=== PATIENT | male | born 1960 | race Caucasian/White ===

== ENCOUNTER → 2016-07-31 | Outpatient (CLI) | payer OTHER | LOC: OD 10:23 | PROVIDERS: ATTEND Urology | DX: C61 Malignant neoplasm of prostate (principal) | CPT/HCPCS: 36415; 84153 ==

== ENCOUNTER → 2016-11-06 | Outpatient (CLI) | payer OTHER ==
[2016-11-07 11:58] LABS: PROSTATE SPECIFIC ANTIGEN <0.1 ng/mL (0.0-4.0); PSA FREE <0.01 ng/mL
== END ==
LOC: OD 10:11
PROVIDERS: ATTEND Urology
DX: C61 Malignant neoplasm of prostate (principal)
CPT/HCPCS: 36415; 84154

== ENCOUNTER 2016-12-06 00:02 | Inpatient (IN) | payer OTHER ==
[2016-12-06] MEDS ORDERED: MORPHINE SULFATE 10 MG/ML INJ IV ONE ×2 (02:28→07:51)
[2016-12-06] MEDS ORDERED: ONDANSETRON HCL INJ/PF 4 MG/2 ML SDV IV ONE (02:28)
--- NOTE | 2016-12-06 02:29 | ER Document Report ---
ED General <RDZ,BRIAN - Last Filed: 12/06/16 05:33> - General TRAVEL OUTSIDE OF THE [place] IN LAST 30 DAYS: No <ZAIDA MARQUEZ - Last Filed: 12/06/16 07:43> - General Chief Complaint: Breathing Difficulty Stated Complaint: FALL/DIFFICULTY BREATHING Time Seen by Provider: 12/06/16 02:21 Notes: 56-year-old male who comes emergency department for chief complaint of fall injury, he states that he does and accidentally landed on his right side with his right arm outstretched, he landed on his ribs and side on the right, he states he has pain with every breath. This happened this evening. Patient takes baby aspirin daily, no other blood thinners. He denies hitting his head, he denies loss of consciousness, he denies focal numbness or weakness, he denies loss of bowel or bladder control. He is a former smoker. (ZAIDA MARQUEZ) - Related Data Allergies/Adverse Reactions: Sulfa (Sulfonamide Antibiotics) Allergy (Severe, Verified 06/11/15 09:02) RASH Past Medical History - General Information source: Patient - Social History Smoking Status: Former Smoker Frequency of alcohol use: Occasional Drug Abuse: None Lives with: Family Family History: Reviewed & Not Pertinent - Past Medical History Cardiac Medical History: Reports: Hx Hypercholesterolemia - on meds, Hx Hypertension - on meds, Hx Heart Murmur Denies: Hx Atrial Fibrillation, Hx Congestive Heart Failure, Hx Coronary Artery Disease, Hx Heart Attack, Hx Peripheral Vascular Disease, Hx Pulmonary Embolism Pulmonary Medical History: Reports: Hx Bronchitis - hx of, Hx Pneumonia - hx of , Hx Sleep Apnea - SINCE 2003 -cpap Denies: Hx Asthma - hx wheezing-inhaler, Hx COPD, Hx Respiratory Failure, Hx Tuberculosis Endocrine Medical History: Denies: Hx Graves' Disease, Hx Hyperthyroidism, Hx Hypothyroidism Renal/ Medical History: Reports: Hx Benign Prostatic Hyperplasia - prostate ca. Denies: Hx End Stage Renal Disease, Hx Kidney Stones, Hx Peritoneal Dialysis Malignancy Medical History: Denies Hx Lung Cancer GI Medical History: Reports: Hx Gastroesophageal Reflux Disease - on meds. Denies: Hx Crohn's Disease, Hx Hiatal Hernia, Hx Irritable Bowel, Hx Liver Failure, Hx Ulcer Musculoskeltal Medical History: Reports Hx Arthritis, Denies Hx Fibromyalgia, Denies Hx Muscular Dystrophy Psychiatric Medical History: Reports: Hx Depression, Hx Post Traumatic Stress Disorder Denies: Hx Bipolar Disorder, Hx Schizophrenia Traumatic Medical History: Reports: Hx Fractures - nose, clavicle, left arm Past Surgical History: Reports: Hx Genitourinary Surgery - prostate. Denies: Hx Appendectomy, Hx Bowel Surgery, Hx Cholecystectomy, Hx Colostomy, Hx Coronary Artery Bypass Graft, Hx Gastric Bypass Surgery, Hx Herniorrhaphy, Hx Pacemaker, Hx Tonsillectomy - Immunizations Hx Diphtheria, Pertussis, Tetanus Vaccination: Yes <ZAIDA MARQUEZ - Last Filed: 12/06/16 07:43> Review of Systems - Review of Systems Constitutional: No symptoms reported EENT: No symptoms reported Cardiovascular: See HPI Respiratory: See HPI Gastrointestinal: See HPI Genitourinary: No symptoms reported Male Genitourinary: No symptoms reported Musculoskeletal: See HPI Skin: No symptoms reported Hematologic/Lymphatic: No symptoms reported Neurological/Psychological: No symptoms reported <ZAIDA MARQUEZ - Randell Filed: 12/06/16 07:43> Physical Exam - Vital signs Interpretation: Normal - General General appearance: Alert, Anxious In distress: Mild - patient appears to be in some pain, shifts frequently - HEENT Head: Normocephalic, Atraumatic Eyes: Normal Conjunctiva: Normal Extraocular movements intact: Yes Eyelashes: Normal Pupils: PERRL Nasal: Normal Mouth/Lips: Normal Mucous membranes: Normal Pharynx: Normal Neck: Normal - Respiratory Respiratory status: No respiratory distress Chest status: Tender - very tender over right mid ribs generally, no contusion or deformity noted, no other abnormalities noted Breath sounds: Decreased air movement - patient will not perform full breaths, decreased and difficult to compare Chest palpation: Normal - Cardiovascular Rhythm: Regular Heart sounds: Normal auscultation Murmur: No - Abdominal Inspection: Normal Distension: No distension Bowel sounds: Normal Tenderness: Tender - Tender generally in the upper abdomen, worse on the right side, no trauma noted, no ecchymosis, no other abnormality noted Organomegaly: No organomegaly - Back Back: Normal, Nontender. No: Tender - Normal upper and lower extremity range of motion, strength, distal neurovascular exam, no midline tenderness, no saddle anesthesia - Extremities General upper extremity: Normal inspection, Nontender, Normal color, Normal ROM , Normal temperature General lower extremity: Normal inspection, Nontender, Normal color, Normal ROM , Normal temperature, Normal weight bearing. No: Akua's sign - Neurological Neuro grossly intact: Yes Cognition: Normal Orientation: AAOx4 [place] Coma Scale Eye Opening: Spontaneous Randall Coma Scale Verbal: Oriented [place] Coma Scale Motor: Obeys Commands Randall Coma Scale Total: 15 Speech: Normal Motor strength normal: LUE, RUE, LLE, RLE Sensory: Normal - Psychological Associated symptoms: Normal affect, Normal mood - Skin Skin Temperature: Warm Skin Moisture: Dry Skin Color: Normal <ZAIDA MARQUEZ - Last Filed: 12/06/16 07:43> - Vital signs Vitals: Temp Pulse Resp BP Pulse Ox 97.3 F 72 20 122/85 97 12/06/16 00:10 12/06/16 00:10 12/06/16 00:10 12/06/16 00:10 12/06/16 00:10 Course - Laboratory Result Diagrams: 12/06/16 03:06 12/06/16 03:06 <AMY RDZ - Last Filed: 12/06/16 05:33> - Laboratory Result Diagrams: 12/06/16 03:06 12/06/16 03:06 <ZAIDA MARQUEZ - Last Filed: 12/06/16 07:43> - Re-evaluation Re-evalutation: 12/06/16 05:34 Patient is being worked up by the physician's academic assistant, I will feel. He performed a CT scan appropriately because the patient's chest pain after fall. CT scan shows a rib fracture as well as a moderate-sized pneumothorax. I discussed with the patient about placing a pigtail catheter. He has no blood or fluid in the lung space on CT scan therefore think pigtail catheter probably is appropriate. Patient was agreeable to this. Patient is on no blood thinning medications and has no current contraindication to a pigtail catheter. Pigtail catheter was placed in the third rib space. This with up to suction. Patient's initial O2 saturations were 90% on a nonrebreather. His O2 saturations are 100% on 5 L nasal cannula. Chest x-ray shows reinflation of the lung. There is a kink in the catheter; however, the patient does have full reinflation of the lung on x-ray. (AMY RDZ) Patient is in obvious discomfort, I do not see any traumatic findings over his chest although he has notable tenderness over the side of the chest on the right and also mildly in the upper abdomen. Patient is not tachypneic, hypoxic , or hypotensive. Because of stable vital signs will proceed to CAT scan imaging for full evaluation of trauma. Provided pain medication. On reassessment patient is improved but still in pain, still has difficulty performing a lung exam because of discomfort (reluctance to perform full breath) , laboratory workup unremarkable, CAT scan pending. Will provide with additional pain medication. Patient became mildly hypoxic after pain medication at about 90%. CT showing acute traumatic right sided pneumothorax with no evidence of bleeding , also 7th rib fracture (non-displaced). No other acute abnormality. Patient moved to trauma room, placed on oxygen, brought Dr. Rdz to bedside. Dr. Rdz performed chest tube/pigtail catheter with good results. 12/06/16 06:[address] Choudhury, surgery material handler floorperson, he will evaluate the patient. 12/06/16 07:[address] Choudhury to patient at bedside; patient will be admitted to the hospital (ZAIDA MARQUEZ) - Vital Signs Vital signs: Temp Pulse Resp BP Pulse Ox 98.1 F 70 15 109/82 99 12/06/16 03:53 12/06/16 03:53 12/06/16 07:01 12/06/16 07:01 12/06/16 07:01 - Laboratory Laboratory results interpreted by me: 12/06/16 12/06/16 03:06 03:06 WBC 11.2 H RBC 4.24 L Hgb 13.3 L Chloride 108 H BUN 27 H - EKG Interpretation by Me Additional EKG results interpreted by me: 12/06/16 05:33 EKG is reviewed and interpreted by me. EKG shows normal sinus rhythm with a rate of 64 bpm. Patient has slight concave up ST segment elevation in leads I and aVL with no reciprocal ST segment depressions. This is not consistent with ischemia. No ischemic T-wave inversions. [place] interval slightly prolonged. QRS duration and QT intervals are within normal range. Old EKG for comparison is from August 01, 2015. (AMY RDZ) Procedures - Chest Tube Right Consent obtained: Yes Chest tube pre-insertion: Chloraprep applied, Sterile drapes applied Anesthetic type: 1% Lidocaine w/epi mL's of anesthetic: 3 Chest tube post-insertion: Sutured, Position confirmed w/ CXR, Water seal, Low intermittent suction Number of attempts: 1 Complications: No <AMY RDZ - Last Filed: 12/06/16 05:33> <ZAIDA MARQUEZ - Last Filed: 12/06/16 07:43> - Chest Tube Right Notes: 12/06/16 05:36 Pig tail catheter was placed in mid clavicular line over third rib interspace ( AMY RDZ) Critical Care Note <AMY RDZ - Last Filed: 12/06/16 05:33> - Critical Care Note Total time excluding time spent on procedures (mins): 35 - traumatic chest injury, pneumothorax <ZAIDA MARQUEZ - Last Filed: 12/06/16 07:43> - Critical Care Note Comments: Evaluation and treatment of patient with fall, acute injury to the chest, acute traumatic pneumothorax, rib fracture. Multiple re-evaluations, consultation with surgery, admission to the hospital. (AZIDA MARQUEZ) Discharge <AMY RDZ - Last Filed: 12/06/16 05:33> - Discharge Admitting Provider: Surgicalist Unit Admitted: Surgical Floor <ZAIDA MARQUEZ - Last Filed: 12/06/16 07:43> - Discharge Clinical Impression: Fall Qualifiers: Encounter type: initial encounter Qualified Code(s): W19.XXXA - Unspecified fall, initial encounter Rib fracture Qualifiers: Encounter type: initial encounter Rib fracture type: single rib Fracture type: closed Laterality: right Qualified Code(s): S22.31XA - Fracture of one rib, right side, initial encounter for closed fracture Pneumothorax Qualifiers: Pneumothorax type: traumatic Encounter type: initial encounter Qualified Code(s ): S27.0XXA - Traumatic pneumothorax, initial encounter Referrals: KELVIN MCCOY MD [Primary Care Provider] - Follow up as needed
[2016-12-06 03:18] LABS: ABSOLUTE BASOPHILS # (AUTO) 0.1 10^3/uL (0.0-0.2); ABSOLUTE EOSINOPHILS # (AUTO) 0.2 10^3/uL (0.0-0.6); ABSOLUTE LYMPHOCYTES (AUTO) 2.8 10^3/uL (0.5-4.7); ABSOLUTE MONOCYTES (AUTO) 0.8 10^3/uL (0.1-1.4); ABSOLUTE NEUT (AUTO) 7.3 10^3/uL (1.7-8.2); BASOPHILS % (AUTO) 0.8 % (0-2); EOSINOPHILS % (AUTO) 1.7 % (0-6); HEMATOCRIT 39.4 % (37.9-51.0); HEMOGLOBIN 13.3 g/dL (13.5-17.0); HGB HCT DIFFERENCE 0.5; LYMPHOCYTES % (AUTO) 25.3 % (13-45); MEAN CORPUSCULAR HEMOGLOBIN 31.5 pg (27.0-33.4); MEAN CORPUSCULAR HGB CONC 33.9 g/dL (32.0-36.0); MEAN CORPUSCULAR VOLUME 93 fl (80-97); MONOCYTES % (AUTO) 6.9 % (3-13); RED BLOOD COUNT 4.24 10^6/uL (4.35-5.55); SEGMENTED NEUTROPHILS % (AUTO) 65.3 % (42-78); WHITE BLOOD COUNT 11.2 10^3/uL (4.0-10.5)
[2016-12-06] MEDS ORDERED: HYDROMORPHONE HCL INJ/PF 2 MG/ML AMPULE IV ONE (03:32)
[2016-12-06 03:47] LABS: ALANINE AMINOTRANSFERASE 34 U/L (21-72); ALBUMIN 4.2 g/dL (3.5-5.0); ALKALINE PHOSPHATASE 50 U/L (38-126); ANION GAP 15 (5-19); ASPARTATE AMINO TRANSFERASE 26 U/L (17-59); BILIRUBIN,DIRECT 0.3 mg/dL (0.0-0.4); BILIRUBIN,TOTAL 0.5 mg/dL (0.2-1.3); BLOOD UREA NITROGEN 27 mg/dL (7-20); CALCIUM 9.5 mg/dL (8.4-10.2); CARBON DIOXIDE 22 mmol/L (22-30); CHLORIDE 108 mmol/L (98-107); CREATININE RESULT 0.96 mg/dL (0.52-1.25); GLUCOSE 84 mg/dL (75-110); POTASSIUM 4.2 mmol/L (3.6-5.0); SODIUM 144.8 mmol/L (137-145); TOTAL PROTEIN 6.9 g/dL (6.3-8.2)
[2016-12-06] MEDS ORDERED: LIDOCAINE 1%/EPINEPHRINE INJ 20 ML VIAL INJ ONE (04:44)
--- NOTE | 2016-12-06 04:53 | RADIOLOGY REPORT (SQ) ---
EXAM DESCRIPTION: CT CHEST WITH; CT ABD/PELVIS WITH IV ONLY COMPLETED DATE/TIME: 12/06/2016 4:22 am REASON FOR STUDY: fall injury, right chest/side pain; fall injury, right upper abd pain CONTRAST TYPE AND DOSE: 95mL Isovue 370- low osmolar. RENAL FUNCTION: BUN 27; creatinine 0.96 COMPARISON: None. TECHNIQUE: CT scan of the chest performed using helical scanning technique with dynamic intravenous contrast injection. Images reviewed with lung, soft tissue and bone windows. Reconstructed coronal a nd sagittal MPR images reviewed. All images stored on PACS. All CT scanners at this facility use dose modulation, iterative reconstruction, and/or weight based d osing when appropriate to reduce radiation dose to as low as reasonably achievable (ALARA). [facility]: Dose Right [facility]: CareDose [facility]: Dose Right [facility]: Teradose 4D [facility]: TearSolutions RADIATION DOSE: 24.07mGy. LIMITATIONS: None. FINDINGS: AXILLAE: No adenopathy. CHEST WALL: Nondisplaced transverse fracture of the right 7th rib posterolaterally. LUNGS: Right-sided pneumothorax without mediastinal shift. Incidental note is made of right upper lo be calcified granuloma with right hilar calcified lymph nodes, consistent with sequela of previous gr anulomatous infection. Bilateral compressive atelectasis. PLEURA: No effusions. No calcifications. THYROID: No masses or significant asymmetry. HILAR AND MEDIASTINAL STRUCTURES: No identified masses or abnormal nodes. AORTA AND GREAT VESSELS: Ectatic ascending aorta. No dissection. PULMONARY ARTERIES: No identified pulmonary emboli. Study not optimized for the pulmonary arteries. HEART: No pericardial effusion. HARDWARE AND LIFELINES: None. BONES: Incidental note is made of a chronic fracture of the right mid clavicle. OTHER: No other significant finding. IMPRESSION: Right-sided pneumothorax without mediastinal shift. Nondisplaced fracture of the right 7th rib. COMPARISON: None. RADIATION DOSE: 24.07mGy. TECHNIQUE: CT scan of the abdomen and pelvis performed with intravenous and oral contrast using kiera nicole scanning technique with dynamic intravenous contrast injection. Images reviewed with lung, soft tissue and bone windows. Reconstructed coronal and sagittal MPR images reviewed. Delayed images for evaluation of the urinary system also acquired and evaluated. All images stored on PACS. All CT scanners at this facility use dose modulation, iterative reconstruction, and/or weight based d osing when appropriate to reduce radiation dose to as low as reasonably achievable (ALARA). [facility]: Dose Right [facility]: SureCare [facility]: Dose Right [facility]: Teradose 4D [facility]: TearSolutions FINDINGS: LIVER: Normal size. No masses or dilated ducts. No evidence of laceration. SPLEEN: Normal size. Incidental note is made of scattered splenic granulomata. No evidence of lacer ation. PANCREAS: No masses. No significant calcifications. No adjacent inflammation or peripancreatic flui d collections. Pancreatic duct not dilated. GALLBLADDER: No identified stones by CT criteria. No inflammatory changes to suggest cholecystitis. ADRENAL GLANDS: No significant masses or asymmetry. RIGHT KIDNEY AND URETER: No solid masses. No significant calcification. No hydronephrosis or hydroure ter. LEFT KIDNEY AND URETER: No solid masses. No significant calcification. No hydronephrosis or hydrouret er. AORTA AND VESSELS: Calcified and noncalcified atherosclerotic plaque. No aneurysm. No dissection. Re nal arteries, SMA, celiac without stenosis. RETROPERITONEUM: No retroperitoneal adenopathy, hemorrhage or masses. LARGE AND SMALL BOWEL: No dilatation. No masses. No wall thickening. APPENDIX: Normal. ABDOMINAL WALL: No hernia or masses. PERITONEAL CAVITY: No free air. No free fluid. No peritoneal implants or masses. PELVIS: No mass or free fluid. Normal bladder. BONES: No significant or acute findings. OTHER: A rounded focus of increased attenuation involving the right buttock subcutaneous fat may repr esent recent intramuscular injection. IMPRESSION: No evidence of visceral injury in this posttraumatic patient. Chronic and incidental fi ndings as detailed above. COMMENT: Pertinent findings on the imaging study reported as a CRITICAL RESULT to ZAIDA beltran t04:31 on 12/06/2016. Category of Critical Result: pneumothorax TECHNICAL DOCUMENTATION: JOB ID: [id number] Quality ID # [id number]: Final reports with documentation of one or more dose reduction techniques (e.g., Au tomated exposure control, adjustment of the mA and/or kV according to patient size, use of iterative reconstruction technique) 2010 [employer]- All Rights Reserved
--- NOTE | 2016-12-06 05:51 | RADIOLOGY REPORT (SQ) ---
EXAM DESCRIPTION: CHEST SINGLE VIEW COMPLETED DATE/TIME: 12/06/2016 5:22 am REASON FOR STUDY: S/P CHEST TUBE COMPARISON: CT chest, abdomen, and pelvis dated 12/06/2016 EXAM PARAMETERS: NUMBER OF VIEWS: One view. TECHNIQUE: Single frontal radiographic view of the chest acquired. RADIATION DOSE: NA LIMITATIONS: None. FINDINGS: LUNGS AND PLEURA: The previously described right pneumothorax appears to be significantly reduced in volume on this semi upright radiograph. No pulmonary exam otherwise appears grossly stabl e, again demonstrating left lung base atelectasis. MEDIASTINUM AND HILAR STRUCTURES: No masses. Contour normal. HEART AND VASCULAR STRUCTURES: Stable. BONES: The known nondisplaced fracture of the right 7th rib is not readily apparent on this image. I ncidental note is again made of a chronic fracture of the right mid clavicle. HARDWARE: The right edith thorax pleural drain has been placed. OTHER: No other significant finding. IMPRESSION: 1. Given differences in modality/technique, the previously described right pneumothorax appears markedly decreased in volume. Otherwise essentially stable pulmonary exam. 2. Interval placement of a right edith thorax pleural drain. 3. Known right 7th rib fracture not radiographically evident. Chronic right clavicular fracture. TECHNICAL DOCUMENTATION: JOB ID: [id number]
[2016-12-06] MEDS ORDERED: DOCUSATE SODIUM 100 MG CAPSULE PO PRN ×2 (08:43→17:32)
[2016-12-06] MEDS ORDERED: MORPHINE SULFATE 10 MG/ML INJ IV PRN (08:43)
[2016-12-06] MEDS ORDERED: ONDANSETRON HCL INJ/PF 4 MG/2 ML SDV IV PRN (08:43)
[2016-12-06] MEDS ORDERED: OXYCODONE-ACETAMINOPHEN 5-325 MG TABLET PO PRN ×2 (08:43→17:32)
--- NOTE | 2016-12-06 08:53 | PDOC H&P ---
History of Present Illness Admission Date/PCP: 12/06/16 07:53 KELVIN MCCOY Patient complains of: Chest and abdominal pain History of Present Illness: EDIE CUEVA is a 56 year old male was playing badminton last night when he dove for a shot landing on his right chest anterior laterally with his arm outstretched. He had abrupt shortness of breath and chest pain. He was brought to the emergency department at [facility] where he was evaluated. He remained hemodynamically stable did have some dips in his oxygen saturations. He had a CT scan of the abdomen and chest which showed no evidence of intra-abdominal trauma although the CT scan was limited by the absence of oral contrast. He was found to have a right seventh posterior rib fracture, nondisplaced, and approximately 30% pneumothorax on the right side. Dr. Jaycob Rdz, emergency room physician placed a percutaneous mini pigtail catheter into the right chest at the third interspace with clinical improvement in the patient's symptoms and saturations. A follow-up chest x-ray showed chest tube in reasonable position with no evidence of pneumothorax however the patient's original pneumothorax was mostly anterior and not apical. Surgery was consulted and the patient was advised admission for further monitoring. Past Medical History Cardiac Medical History: Reports: Hyperlipidema - on meds, Hypertension - on meds, Heart Murmur Denies: Atrial Fibrillation, Congestive Heart Failure, Coronary Artery Disease, Myocardial Infarction, Peripheral Vascular Disease, Pulmonary Embolism Pulmonary Medical History: Reports: Bronchitis - hx of, Pneumonia - hx of, Sleep Apnea - SINCE 2003 -cpap Denies: Asthma - hx wheezing-inhaler, Chronic Obstructive Pulmonary Disease ( COPD), Respiratory Failure, Tuberculosis Endocrine Medical History: Denies: Hyperthyroidism, Hypothyroidism Renal/ Medical History: Denies: End Stage Renal Disease Malignancy Medical History: Denies: Lung Cancer GI Medical History: Reports: Gastroesophageal Reflux Disease - on meds Denies: Crohn's Disease, Hiatal Hernia Musculoskeltal Medical History: Reports: Arthritis Denies: Fibromyalgia Psychiatric Medical History: Reports: Depression, Post Traumatic Stress Disorder Denies: Bipolar Disorder Past Surgical History Past Surgical History: Reports: Other - Patient has a history of robotic prostatectomy July,, Dr. Murphy Denies: Appendectomy, Cholecystectomy, Colostomy, Coronary Artery Bypass Graft, Gastric Bypass Surgery, Herniorrhaphy, Pacemaker, Tonsillectomy Social History Lives with: Family Smoking Status: Former Smoker Frequency of Alcohol Use: Occasional Hx Recreational Drug Use: No Hx Prescription Drug Abuse: No Family History Family History: Reviewed & Not Pertinent Parental Family History Reviewed: Yes Children Family History Reviewed: Yes Sibling(s) Family History Reviewed.: Yes Medication/Allergy Allergies/Adverse Reactions: Sulfa (Sulfonamide Antibiotics) Allergy (Severe, Verified 06/11/15 09:02) RASH Review of Systems Constitutional: ABSENT: chills, fever(s), headache(s), weight gain, weight loss Eyes: ABSENT: visual disturbances Ears: ABSENT: hearing changes Cardiovascular: PRESENT: dyspnea on exertion Respiratory: PRESENT: as per HPI Gastrointestinal: PRESENT: abdominal pain Genitourinary: PRESENT: other - Patient has incontinence post prostatectomy Musculoskeletal: PRESENT: as per HPI Integumentary: ABSENT: rash, wounds Neurological: ABSENT: abnormal gait, abnormal speech, confusion, dizziness, focal weakness, syncope Psychiatric: ABSENT: anxiety, depression, homidical ideation, suicidal ideation Endocrine: ABSENT: cold intolerance, heat intolerance, polydipsia, polyuria Hematologic/Lymphatic: ABSENT: easy bleeding, easy bruising Physical Exam Vital Signs: Temp Pulse Resp BP Pulse Ox 98.1 F 70 15 109/82 98 12/06/16 03:53 12/06/16 03:53 12/06/16 08:00 12/06/16 08:04 12/06/16 08:00 General appearance: PRESENT: mild distress Head exam: PRESENT: normocephalic Eye exam: PRESENT: EOMI Ear exam: PRESENT: TM's normal bilaterally Mouth exam: PRESENT: moist Neck exam: PRESENT: full ROM Respiratory exam: PRESENT: accessory muscle use, chest wall tenderness, decreased breath sounds, retraction Cardiovascular exam: PRESENT: RRR Pulses: PRESENT: normal carotid pulses GI/Abdominal exam: PRESENT: soft Rectal exam: PRESENT: deferred Extremities exam: PRESENT: full ROM Musculoskeletal exam: PRESENT: tenderness - Right chest wall Neurological exam: PRESENT: alert, altered, awake, oriented to person, oriented to place Results Impressions: Chest X-Ray 12/06/16 00:00 IMPRESSION: 1. Given differences in modality/technique, the previously described right pneumothorax appears markedly decreased in volume. Otherwise essentially stable pulmonary exam. 2. Interval placement of a right edith thorax pleural drain. 3. Known right 7th rib fracture not radiographically evident. Chronic right clavicular fracture. Abdomen/Pelvis CT 12/06/16 02:27 IMPRESSION: Right-sided pneumothorax without mediastinal shift. Nondisplaced fracture of the right 7th rib. IMPRESSION: No evidence of visceral injury in this posttraumatic patient. Chronic and incidental findings as detailed above. Chest CT 12/06/16 02:27 IMPRESSION: Right-sided pneumothorax without mediastinal shift. Nondisplaced fracture of the right 7th rib. IMPRESSION: No evidence of visceral injury in this posttraumatic patient. Chronic and incidental findings as detailed above. Assessment & Plan - Diagnosis (1) Pneumothorax Qualifiers: Pneumothorax type: traumatic Encounter type: initial encounter Qualified Code(s): S27.0XXA - Traumatic pneumothorax, initial encounter Is this a current diagnosis for this admission?: YesPlan: . Patient is status post low velocity fall with blunt right chest trauma including right posterior seventh rib fracture and pneumothorax. Patient has had a pigtail catheter inserted into the right chest with presumed reexpansion of the right lung however this is difficult to ascertain on the portable chest x -ray. Patient is clinically improved. 2. Will admit patient, continue pulmonary toilet, pigtail onto Pleur-evac suction, and repeat chest x-ray in approximately 6 hours. (2) Rib fracture Is this a current diagnosis for this admission?: YesPlan: Will be managed with pulmonary toilet and pain medication. (3) Asthma Is this a current diagnosis for this admission?: Yes (4) HTN (hypertension) Is this a current diagnosis for this admission?: YesPlan: We will determine if patient is on any home meds and resume accordingly. (5) PTSD (post-traumatic stress disorder) Is this a current diagnosis for this admission?: Yes - Time Time Spent: 50 to 70 Minutes Critical Time spent with patient: 15-24 minutes Medications reviewed and adjusted accordingly: Yes Anticipated discharge: Home - Inpatient Certification Based on my medical assessment, after consideration of the patient's comorbidities, presenting symptoms, or acuity I expect that the services needed warrant INPATIENT care.: Yes I certify that my determination is in accordance with my understanding of Medicare's requirements for reasonable and necessary INPATIENT services [42 CFR 412.3e].: Yes Medical Necessity: Need For IV Fluids, Need for Pain Control
--- NOTE | 2016-12-06 09:12 | EKG REPORT ---
SEVERITY:- ABNORMAL ECG - SINUS RHYTHM FIRST DEGREE AV BLOCK : Confirmed by: Philip Andrews MD 06-Dec-2016 09:12:00
[2016-12-06] MEDS ORDERED: KETOROLAC TROMETHAMINE INJ/PF 30 MG/1 ML SDV IV PRN (10:14)
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
[2016-12-06] MEDS: ONDANSETRON HCL INJ/PF 4 MG/2 ML SDV IV PRN ×2 (17:41→21:11)
[2016-12-06] MEDS: KETOROLAC TROMETHAMINE INJ/PF 30 MG/1 ML SDV IV PRN (17:42)
[2016-12-06] MEDS: MORPHINE SULFATE 10 MG/ML INJ IV PRN (21:11)
[2016-12-07] MEDS: KETOROLAC TROMETHAMINE INJ/PF 30 MG/1 ML SDV IV PRN ×2 (00:35→08:11)
[2016-12-07] MEDS: MORPHINE SULFATE 10 MG/ML INJ IV PRN (06:25)
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
[2016-12-07 08:37] VITALS: BP 125/83
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
== END 2016-12-07 09:30 | disposition home or self-care (01) | DRG 200 ==
LOC: ER 00:02 → EH 07:53 → UNDOADMIN 07:53 → EH 08:42 → 5 09:15 → UNDODISIN 15:20
PROVIDERS: ATTEND Surgery
PROC: 0W9930Z Drainage of Right Pleural Cavity with Drainage Device, Percutaneous Approach (ICD-10-PCS; principal; 2016-12-06)
DX: S27.0XXA Traumatic pneumothorax, initial encounter (principal); S22.31XA Fracture of one rib, right side, initial encounter for closed fracture; W18.39XA Other fall on same level, initial encounter; E78.5 Hyperlipidemia, unspecified; I10 Essential (primary) hypertension; G47.30 Sleep apnea, unspecified; K21.9 Gastro-esophageal reflux disease without esophagitis; J45.909 Unspecified asthma, uncomplicated; F32.9 Major depressive disorder, single episode, unspecified; F43.10 Post-traumatic stress disorder, unspecified; Y92.9 Unspecified place or not applicable; Y93.69 Activity, other involving other sports and athletics played as a team or group; Z87.891 Personal history of nicotine dependence; Z88.2 Allergy status to sulfonamides
CPT/HCPCS: 36415; 71010; 71260; 74177; 80053; 85025; 86850; 86900; 86901; 93005; 93010; 96374; 96375; 99291; J1170; J1885; J2270; J2405; J3490

== ENCOUNTER → 2016-12-18 | Outpatient (CLI) | payer OTHER ==
--- NOTE | 2016-12-18 11:22 | RADIOLOGY REPORT (SQ) ---
EXAM DESCRIPTION: CHEST PA/LATERAL COMPLETED DATE/TIME: 12/18/2016 11:02 am REASON FOR STUDY: PNEUMOTHORAX, UNSPECIFIED COMPARISON: 12/07/2016 EXAM PARAMETERS: NUMBER OF VIEWS: two views TECHNIQUE: Digital Frontal and Lateral radiographic views of the chest acquired. RADIATION DOSE: NA LIMITATIONS: none FINDINGS: LUNGS AND PLEURA: There is improvement in the small left pleural effusion. No acute pulmo nary infiltrate is seen. A small catheter is been removed from the right hemithorax. No residual pn eumothorax is seen. MEDIASTINUM AND HILAR STRUCTURES: No masses or contour abnormalities. HEART AND VASCULAR STRUCTURES: Heart normal size. No evidence for failure. BONES: There is a fracture with overriding of the fracture ends involving the right 7th rib. HARDWARE: None in the chest. OTHER: No other significant finding. IMPRESSION: 1. There is minimal left pleural effusion with improvement. 2. No pneumothorax is seen. 3. There is a fracture of the right 7th rib as described. This is a new finding. TECHNICAL DOCUMENTATION: JOB ID: [id number] [employer]- All Rights Reserved
== END ==
LOC: OD 10:40
PROVIDERS: ATTEND Surgery
DX: J93.9 Pneumothorax, unspecified (principal)
CPT/HCPCS: 71020

== ENCOUNTER → 2017-02-17 | Outpatient (CLI) | payer OTHER | LOC: OD 15:51 | PROVIDERS: ATTEND Urology | DX: C61 Malignant neoplasm of prostate (principal); N52.9 Male erectile dysfunction, unspecified; N39.3 Stress incontinence (female) (male) | CPT/HCPCS: 36415; 84153 ==

== ENCOUNTER → 2017-08-30 | Outpatient (CLI) | payer OTHER | LOC: OD 14:14 | PROVIDERS: ATTEND Urology | DX: Z85.46 Personal history of malignant neoplasm of prostate (principal) | CPT/HCPCS: 36415; 84153 ==

== ENCOUNTER → 2018-03-10 | Outpatient (CLI) | payer MEDICARE, OTHER ==
[2018-03-11 14:57] LABS: PROSTATE SPECIFIC ANTIGEN <0.1 ng/mL (0.0-4.0); PSA FREE <0.01 ng/mL
== END ==
LOC: OD 10:14
PROVIDERS: ATTEND Urology
DX: C61 Malignant neoplasm of prostate (principal)
CPT/HCPCS: 36415; 84154

== ENCOUNTER → 2018-11-11 | Outpatient (CLI) | payer MEDICARE, OTHER | LOC: OD 10:04 | PROVIDERS: ATTEND Urology | DX: C61 Malignant neoplasm of prostate (principal) | CPT/HCPCS: 36415; 84153 ==